=== PATIENT | female | born 1930 | race African-American/Black ===

== ENCOUNTER 2019-09-26 14:34 | Emergency (ER) | payer OTHER ==
[~2019-09-26] VITALS: Ht 165.1 cm; Wt 90.0 kg
[~2019-09-26 14:34] MED LIST: UNK MEDS
[2019-09-26] MEDS ORDERED: ONDANSETRON HCL 4MG/2ML INJ IV STA (16:15)
[2019-09-26] MEDS ORDERED: PIPERACILLIN/TAZ 3.375G PREMIX 50 ML IV ONE (16:15)
[2019-09-26] MEDS ORDERED: MORPHINE SULFATE 4 MG/ML CPJ (NOT FOR IM USE) IV STA (16:15)
[2019-09-26] MEDS ORDERED: SODIUM CHLORIDE 0.9% 1000ML BAG (SEPSIS BOLUS) IV ONE (16:15)
[2019-09-26] MEDS ORDERED: VANCOMYCIN 1 G PREMIX 200 ML IV ONE (16:15)
[2019-09-26 17:37] LABS: HEMATOCRIT. 35.4 % (36.0-48.0); HEMOGLOBIN. 11.5 g/dL (12.0-16.0); MEAN CORPUSCULAR HEMOGLOBIN 30.4 pg (28.0-32.0); MEAN CORPUSCULAR VOLUME 93.4 fL (81.0-99.0); MEAN PLATELET VOLUME 9.4 fl (7.4-10.4); PLATELET 274 x1000/uL (130-400); RED BLOOD CELL COUNT 3.79 mill/uL (4.2-5.4); RED CELL DISTRIBUTION WIDTH 13.4 % (11.6-14.6)
[2019-09-26 17:41] LABS: INR 2.1
[2019-09-26 17:42] LABS: CHLORIDE 100 mEq/L (98-107)
[2019-09-26 18:00] LABS: PLATELET ESTIMATE NORMAL
[2019-09-26 23:46] VITALS: BP 112/53
== END 2019-09-26 23:48 | disposition short-term general hospital (02) ==
LOC: ER 14:34 → CANBEDREQ 09-27 00:20
DX: R41.82 Altered mental status, unspecified (principal); A41.9 Sepsis, unspecified organism; D72.829 Elevated white blood cell count, unspecified; L08.9 Local infection of the skin and subcutaneous tissue, unspecified; E11.9 Type 2 diabetes mellitus without complications; I10 Essential (primary) hypertension; Z86.73 Personal history of transient ischemic attack (TIA), and cerebral infarction without residual deficits
CPT/HCPCS: 36415; 70450; 71045; 80053; 82962; 83605; 84145; 84484; 85025; 85610; 87040; 87070; 87077; 87186; 87205; 93005; 96365; 96366; 96368; 96375; 99285; J2270; J2405; J2543; J3370; J7030